=== PATIENT | male | born 1980 | race Caucasian/White ===

== ENCOUNTER → 2017-04-30 | Outpatient (CLI) | payer BC ==
--- NOTE | 2017-04-30 19:41 | REP ---
Clinical: Trauma. Technique: AP, lateral, bilateral oblique views left first digit. Findings: The osseous structures and joint spaces are intact and normal. There is no evidence for acute fracture or dislocation. Surrounding soft tissues are unremarkable. No subcutaneous emphysema or radiodense foreign body. Impression: No acute fracture or dislocation. Signed by Christiano Dunham MD 04/30/2017 07:33 P
== END ==
LOC: M WUC 19:16
PROVIDERS: ATTEND Physician Assistant
DX: S67.02XA Crushing injury of left thumb, initial encounter (principal); W18.30XA Fall on same level, unspecified, initial encounter; Y92.009 Unspecified place in unspecified non-institutional (private) residence as the place of occurrence of the external cause

== ENCOUNTER 2017-12-06 17:42 | Emergency (ER) | payer OTHER, BC | END 2017-12-06 19:58 | disposition home or self-care (01) | LOC: M ED 17:42 | DX: T59.891A Toxic effect of other specified gases, fumes and vapors, accidental (unintentional), initial encounter (principal); J68.9 Unspecified respiratory condition due to chemicals, gases, fumes and vapors; X58.XXXA Exposure to other specified factors, initial encounter; Y92.89 Other specified places as the place of occurrence of the external cause; G47.33 Obstructive sleep apnea (adult) (pediatric) | CPT/HCPCS: 71046 ==

== ENCOUNTER 2019-07-17 08:10 | Day surgery (SDC) | payer BC ==
[~2019-07-17] VITALS: Ht 170.2 cm; Wt 85.3 kg
[~2019-07-17 08:10] MED LIST: LIDOCAINE 1% MDV 20ML VIAL SQ PRN; LR 1,000 ML IV ONE; ceFAZolin SOD 2 GM in IV 1 EA IV ONE
[2019-07-17] MEDS ORDERED: ROPIvacaine 0.5% 30 ML INJECTION (J2795 PER 1MG) ONE (08:11)
[2019-07-17] MEDS ORDERED: EPINEPHrine INJ 1 MG/ML 1ML AMP ONE (08:11)
[2019-07-17] MEDS ORDERED: dexameTHASONE 10 MG/1 ML VIAL PRES.FREE (J1100) ONE (08:11)
[2019-07-17] MEDS ORDERED: MOTR200T44 PO (08:41)
[2019-07-17] MEDS ORDERED: fentaNYL 100 MCG/2 ML INJECTION (J3010) As Ordered ONE (08:53)
[2019-07-17] MEDS ORDERED: MIDAZOLAM INJ 2 MG/2 ML VIAL (J2250) As Ordered ONE ×2 (08:53→11:44)
[2019-07-17] MEDS ORDERED: fentaNYL 100 MCG/2 ML INJECTION (J3010) IV ONE (09:30)
[2019-07-17] MEDS ORDERED: MIDAZOLAM INJ 2 MG/2 ML VIAL (J2250) IV ONE (09:30)
[2019-07-17] MEDS ORDERED: BUPIVACAINE HCL 0.5% 10 ML VIAL As Ordered ONE (11:12)
[2019-07-17] MEDS ORDERED: LIDOCAINE 2% INJ 100 MG/5 ML SDV (FOR ANES.) As Ordered ONE (11:44)
[2019-07-17] MEDS ORDERED: PROPOFOL 200 MG/20 ML VIAL As Ordered ONE (11:44)
[2019-07-17] MEDS ORDERED: ROCURONIUM BROMIDE 50 MG/5 ML VIAL As Ordered ONE (11:44)
[2019-07-17] MEDS ORDERED: fentaNYL 250 MCG/5 ML INJECTION (J3010) As Ordered ONE (11:44)
[2019-07-17] MEDS ORDERED: dexameTHASONE 4 MG/ML 1ML VIAL (J1100) As Ordered ONE (11:45)
[2019-07-17] MEDS ORDERED: SUCCINYLCHOLINE 100 MG/5 ML SYRINGE (J0330) As Ordered ONE (11:47)
[2019-07-17] MEDS ORDERED: KETOROLAC 60 MG/2 ML VIAL (J1885) As Ordered ONE (13:13)
[2019-07-17] MEDS ORDERED: NEOSTIGMINE 10 MG/10 ML VIAL (J2710) As Ordered ONE (13:14)
[2019-07-17] MEDS ORDERED: ONDANSETRON 4MG/2ML VIAL (J2405) As Ordered ONE ×2 (13:14→14:26)
[2019-07-17] MEDS ORDERED: GLYCOPYRROLATE INJ 0.2 MG/ML 2 ML VIAL As Ordered ONE (13:15)
[2019-07-17] MEDS ORDERED: oxyCODONE 5MG TAB PO PRN (14:45)
[2019-07-17] MEDS ORDERED: LR 1,000 ML IV SCH ×2 (14:45→15:00)
[2019-07-17] MEDS ORDERED: fentaNYL 100 MCG/2 ML INJECTION (J3010) IV PRN (14:45)
[2019-07-17] MEDS ORDERED: ONDANSETRON 4MG/2ML VIAL (J2405) IV PRN (14:45)
[2019-07-17] MEDS ORDERED: METOCLOPRAMIDE INJ 10MG/2ML VIAL (J2765) As Ordered ONE (14:57)
[2019-07-17] MEDS ORDERED: METOCLOPRAMIDE INJ 10MG/2ML VIAL (J2765) IV ONE (15:00)
[2019-07-17] MEDS ORDERED: PROMETHAZINE INJ 25 MG/ML VIAL (J2550) As Ordered ONE (15:13)
[2019-07-17] MEDS ORDERED: PROMETHAZINE INJ 25 MG/ML VIAL (J2550) IV PRN (15:15)
[2019-07-17 16:55] VITALS: BP 119/67
--- NOTE | 2019-07-22 20:01 | RO ---
DATE OF PROCEDURE: 07/17/2019 PREOPERATIVE DIAGNOSES: 1. Re-tear of left anterior cruciate ligament. 2. Left knee lateral meniscus tear. 3. Left knee osteoarthritis. POSTOPERATIVE DIAGNOSES: 1. Re-tear of left anterior cruciate ligament. 2. Left knee lateral meniscus tear. 3. Left knee osteoarthritis. PROCEDURES: 1. Left knee revision anterior cruciate ligament reconstruction with Achilles allograft. 2. Left knee arthroscopic partial lateral meniscectomy and chondroplasty. SURGEON: Dr. Jacob Quintero PRESS ASSISTANT AND FEEDER: DARIO Dorantes ANESTHESIA: Preoperative nerve block plus general. IV FLUIDS Lactated Ringer's. ESTIMATED BLOOD LOSS: Less than 25 mL. IMPLANTS: Arthrex 7 x 23 mm PEEK interference screw in the femur, Arthrex 10 x 28 mm PEEK interference screw in the tibia with a 4.75 mm PEEK SwiveLock for backup fixation of the tibia. CLOSURE: Nylon. DESCRIPTION OF PROCEDURE: Patient identified in the preoperative holding area. The left leg marked by myself. He had a preoperative nerve block. He was then brought to the operating room, placed supine on a well-padded operating room (OR) table. General anesthesia was induced. He received appropriate IV antibiotics within 1 hour of incision. All bony prominences were well padded. He had a Venodyne boot on the right lower extremity for deep vein thrombosis (DVT) prophylaxis. Exam under anesthesia revealed range of motion from 1-135 degrees, stable to varus and valgus stress and grade 2B Yulia with a positive pivot shift, negative posterior drawer. The left leg was then prepped and draped in the normal sterile fashion. Prior to incision, a time-out performed per hospital protocol. Timur Ragsdale was present for the entire procedure and participated in all essential portions of the procedure. This included patient positioning and draping, preparing the graft on the back table, holding the arthroscope, hyperflexing the knee to assist with drilling via an anteromedial portal, retrieving sutures, manipulating the leg and wound closure. The left knee was insufflated with lactated Ringer's. A standard anterolateral portal made with 11-blade. The leg was exsanguinated with an Esmarch bandage, the tourniquet inflated to 250 mmHg. The knee was insufflated with lactated Ringer's. Standard anterolateral portal made with #11 blade. 30-degree arthroscope introduced into the joint. 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 No loose bodies. Medial compartment was entered where there was no significant chondromalacia. No meniscus tears. The anterior cruciate ligament (ACL) was then inspected, and there were ACL fibers from the initial surgery still present. However, they had torn off the femur and were both scarred into the intercondylar notch and balled up on the tibia. The leg was then brought to the figure four position where there was grade 2 chondromalacia of the lateral compartment, and there was a complex tear in the body and posterior horn lateral meniscus with evidence of a prior lateral meniscus repair. On probing, it appeared that some of the lateral meniscus repair remained intact. I therefore proceeded with a careful partial lateral meniscectomy using combination meniscal punches and a shaver to remove only the unstable tissue. I would estimate I removed approximately one-third of the lateral meniscus. All remaining lateral meniscus tissue was stable on probing. Separately, there was a tear adjacent to the root of the posterior horn lateral meniscus and that was also debrided. However the majority of the root was still intact. Chondroplasty was also performed with the shaver. I then debrided the ACL fibers from the initial surgery using a shaver. Cautery was used to clear soft tissue off the femoral attachment. An 8 mm [id number] guide was then used via the anteromedial portal and a Beath pin was advanced out the lateral femoral condyle. This was just posterior to the initial tunnel. A low profile 10 mm acorn reamer was then used to drill a femoral socket 25 mm in depth. Shaver was used to remove bony debris. PDS passing suture was then placed. Next, the tibial tunnel was drilled. I opened the prior tibial incision, had difficulty visualizing the screw so the guide pin was advanced with the tibial drill guide entering the joint. Due to previous tibial tunnel, 10 mm reamer was used to drill a size 10 tibial tunnel. The shaver used to remove bony debris and soft tissue at the aperture to help avoid a cyclops. Some suture from the initial surgery was then removed. The passing suture was then drawn out the tibial tunnel, and I should have mentioned that my assistant manager trainee on the back table prepared an Achilles allograft that was precut to fit through a size 10 bone block with predrilled drill holes and #2 FiberWire was placed through both drill holes. A running locking whipstitch of #2 FiberWire was also placed in a Krackow fashion. The graft had been secured on the back table with a moist sponge. The graft was now passed into the joint, docked into the femoral tunnel. A Nitinol wire was placed, and a 7 mm tap was placed. Initially I used the 8 x 23 mm screw. However, this had inadequate purchase, and I downsized to a 7 x 23 screw and then this had excellent fixation. The knee was brought into full extension. There was no notch impingement. The knee was then again brought into full extension. A large bump placed behind the femoral condyles, and a Nitinol wire placed through the tibial tunnel and a 10 x 28 mm PEEK interference screw was placed over the Nitinol wire as my assistant manager trainee applied a posterior drawer of the tibial tubercle and I applied distal traction. The screw had good but not great fixation, and therefore, I elected to back this up with a 4.75 mm PEEK SwiveLock anchor. The sutures that had been placed through the soft tissue portion of the graft were loaded through the SwiveLock, a socket was drilled with a 4.5 mm drill bit, the appropriate tap used and then the SwiveLock docked with excellent fixation. There was a grade 1A Yulia. The knee was then ranged 0 to 120 degrees. Repeat Yulia showed no change. The knee was irrigated, the scope was placed back into the joint. No residual bony debris. The graft was probed, found to be under good tension. Incisions were then closed in a layered fashion, #2-0 Vicryl, running nylon. Portals closed with nylon. Tourniquet was let down with excellent reperfusion. Bulky sterile dressing applied. All counts correct times two. Complications: None. He was extubated and transferred to the post-anesthesia care unit (PACU) in stable condition.
== END 2019-07-17 16:55 | disposition home or self-care (01) ==
LOC: M SDC 08:10
PROVIDERS: ATTEND Orthopaedic Surgery
DX: S83.512A Sprain of anterior cruciate ligament of left knee, initial encounter (principal); M23.252 Derangement of posterior horn of lateral meniscus due to old tear or injury, left knee; M17.12 Unilateral primary osteoarthritis, left knee; G47.30 Sleep apnea, unspecified; Y92.89 Other specified places as the place of occurrence of the external cause; Y93.9 Activity, unspecified; Y99.9 Unspecified external cause status
CPT/HCPCS: 29881; 29888; 64447; C1713; C1762; J0330; J0690; J1100; J1885; J2250; J2405; J2710; J2795; J3010

== ENCOUNTER → 2019-10-24 | Outpatient (REF) | payer BC ==
[~2019-10-24] MED LIST changes: -LIDOCAINE 1% MDV 20ML VIAL SQ PRN; -LR 1,000 ML IV ONE; +MOTR200T44 PO; -ceFAZolin SOD 2 GM in IV 1 EA IV ONE
[2019-10-24 12:20] LABS: BASO # 0.1 10^3/uL (0.0-0.2); BASO % 1.1 % (0.0-1.0); EOS # 0.2 10^3/uL (0.0-0.5); EOS % 2.4 % (0.0-3.0); HEMATOCRIT 45.1 % (42.0-52.0); HEMOGLOBIN 14.4 g/dl (13.5-17.5); LYMPH # 1.5 10^3/uL (1.5-5.0); MEAN CORPUSCULAR HEMOGLOBIN 27.9 pg (27.0-33.0); MEAN CORPUSCULAR HGB CONC 31.9 g/dl (32.0-36.5); MEAN CORPUSCULAR VOLUME 87.2 fl (80.0-96.0); MONO # 0.5 10^3/uL (0.0-0.8); MONO % 7.5 % (0.0-5.0); NEUTROPHILS # 3.9 10^3/uL (1.5-8.5); NEUTROPHILS % 63.5 % (36.0-66.0); PLATELET COUNT, AUTOMATED 235 10^3/uL (150-450); RED BLOOD COUNT 5.17 10^6/uL (4.30-6.10); WHITE BLOOD COUNT 6.2 10^3/uL (4.0-10.0)
[2019-10-24 12:54] LABS: ALBUMIN 4.1 GM/DL (3.2-5.2); ALT/SGPT 26 U/L (12-78); BILIRUBIN,TOTAL 0.7 MG/DL (0.2-1.0); BLOOD UREA NITROGEN 15 MG/DL (7-18); CALCIUM LEVEL 8.8 MG/DL (8.5-10.1); CARBON DIOXIDE LEVEL 27 MEQ/L (21-32); CHLORIDE LEVEL 107 MEQ/L (98-107); CHOLESTEROL LEVEL 183 MG/DL (<200); CHOLESTEROL RISK RATIO 5.718 (<5); CREATININE FOR GFR 0.91 MG/DL (0.70-1.30); FREE T4 0.97 NG/DL (0.76-1.46); GLOMERULAR FILTRATION RATE > 60.0 (>60); GLUCOSE, FASTING 88 MG/DL (70-100); HDL CHOLESTEROL 32 MG/DL (>40); LDL CHOLESTEROL 118 MG/DL (<100); NON-HDL-C 151 MG/DL; POTASSIUM SERUM 4.1 MEQ/L (3.5-5.1); SODIUM LEVEL 140 MEQ/L (136-145); THYROID STIMULATING HORMONE 0.541 uIU/ML (0.358-3.740); TOTAL PROTEIN 7.1 GM/DL (6.4-8.2); TRIGLYCERIDES LEVEL 163 MG/DL (<150)
[2019-10-24 13:21] LABS: HEMOGLOBIN A1c 5.5 %
== END ==
LOC: M LAB REF 11:54
PROVIDERS: ATTEND Physician Assistant
DX: Z13.220 Encounter for screening for lipoid disorders (principal); Z13.29 Encounter for screening for other suspected endocrine disorder

== ENCOUNTER → 2020-12-02 | Outpatient (REF) | payer BC | LOC: M LAB REF 13:51 | PROVIDERS: ATTEND Pediatrics | DX: J06.9 Acute upper respiratory infection, unspecified (principal) ==

== ENCOUNTER 2021-01-09 20:29 | Emergency (ER) | payer BC ==
[~2021-01-09] VITALS: Ht 170.2 cm; Wt 94.2 kg
[2021-01-09] MEDS ORDERED: BOOSTRIX/ADACEL VACCINE (DIPHTH/PERTUSS/ACELL/TETANUS) 0.5ML SYR IM ONE (21:05)
[2021-01-09] MEDS ORDERED: LIDOCAINE W/EPINEPHRINE 1% 20ML VIAL SC ONE (21:05)
[2021-01-09 21:56] VITALS: BP 128/67
== END 2021-01-09 21:57 | disposition home or self-care (01) ==
LOC: M ED 20:29
DX: S61.412A Laceration without foreign body of left hand, initial encounter (principal); W26.0XXA Contact with knife, initial encounter; Y92.019 Unspecified place in single-family (private) house as the place of occurrence of the external cause; Y93.9 Activity, unspecified; Y99.9 Unspecified external cause status

== ENCOUNTER → 2024-04-01 | Outpatient (CLI) | payer BC, SELFPAY ==
[2024-04-01 11:12] LABS: BASO # 0.1 10^3/uL (0.0-0.2); BASO % 0.8 % (0.0-1.0); EOS # 0.2 10^3/uL (0.0-0.5); EOS % 2.7 % (0.0-3.0); HEMATOCRIT 43.6 % (42.0-52.0); HEMOGLOBIN 14.1 g/dl (13.5-17.5); LYMPH # 1.4 10^3/uL (1.5-5.0); LYMPH % 23.6 % (24.0-44.0); MEAN CORPUSCULAR HEMOGLOBIN 28.3 pg (27.0-33.0); MEAN CORPUSCULAR HGB CONC 32.3 g/dl (32.0-36.5); MEAN CORPUSCULAR VOLUME 87.4 fl (80.0-96.0); MONO # 0.5 10^3/uL (0.0-0.8); MONO % 7.8 % (2.0-8.0); NEUTROPHILS # 3.8 10^3/uL (1.5-8.5); NEUTROPHILS % 64.4 % (36.0-66.0); PLATELET COUNT, AUTOMATED 236 10^3/uL (150-450); RED BLOOD COUNT 4.99 10^6/uL (4.30-6.10); WHITE BLOOD COUNT 5.9 10^3/uL (4.0-10.0)
[2024-04-01 11:28] LABS: ALBUMIN 4.1 G/DL (3.2-5.2); ALKALINE PHOSPHATASE 66 U/L (46-116); ALT/SGPT 26 U/L (7.0-40); AST/SGOT 16 U/L (<34); BILIRUBIN,TOTAL 2.1 MG/DL (0.3-1.2); BLOOD UREA NITROGEN 16 MG/DL (9-23); CALCIUM LEVEL 9.4 MG/DL (8.5-10.1); CARBON DIOXIDE LEVEL 29 MMOL/L (20-31); CHLORIDE LEVEL 105 MMOL/L (98-107); CHOLESTEROL LEVEL 211 MG/DL (<200); CHOLESTEROL RISK RATIO 5.73 (<5); CREATININE FOR GFR 0.91 MG/DL (0.70-1.30); GLOMERULAR FILTRATION RATE > 60.0 (>60); GLUCOSE, FASTING 102 MG/DL (60-100); HDL CHOLESTEROL 36.8 MG/DL (>40); LDL CHOLESTEROL 153.6 MG/DL (<100); NON-HDL-C 174.2 MG/DL; POTASSIUM SERUM 4.2 MMOL/L (3.5-5.1); SODIUM LEVEL 138 MMOL/L (136-145); TOTAL PROTEIN 6.9 G/DL (5.7-8.2); TRIGLYCERIDES LEVEL 103 MG/DL (<150)
[2024-04-01 11:31] LABS: THYROID STIMULATING HORMONE 0.929 uIU/ML (0.55-4.78); TOTAL 25(OH) VITAMIN D 22.5 NG/ML (20.0-100.0)
[2024-04-01 11:33] LABS: FREE T4 1.09 NG/DL (0.89-1.76)
[2024-04-01 11:52] LABS: HEMOGLOBIN A1c 5.2 % (4.0-6.0)
== END ==
LOC: M PLALAB 07:37
PROVIDERS: ATTEND Physician Assistant
DX: Z13.29 Encounter for screening for other suspected endocrine disorder (principal); Z13.220 Encounter for screening for lipoid disorders

== ENCOUNTER → 2024-11-09 | Outpatient (CLI) | payer BC | LOC: M SLEEP 20:00 | PROVIDERS: ATTEND Nurse Practitioner Adult Health | DX: G47.33 Obstructive sleep apnea (adult) (pediatric) (principal) ==

== ENCOUNTER → 2024-12-25 | Outpatient (CLI) | payer BC | LOC: M RAD 09:23 | PROVIDERS: ATTEND Physician Assistant | DX: M25.552 Pain in left hip (principal) ==